=== PATIENT | male | born 1945 | race Caucasian/White ===

== ENCOUNTER → 2017-05-25 | Outpatient (CLI) | payer MEDICARE, BC ==
[2017-05-25 13:24] LABS: BASO % 0.3 % (0.0-1.0); EOS # 0.2 10^3/uL (0.0-0.50); EOS % 1.5 % (0.0-3.0); IMMATURE GRANULOCYTE % 0.7 % (0-0); LYMPH # 1.8 10^3/uL (1.5-4.5); LYMPH % 16.2 % (24.0-44.0); MEAN CORPUSCULAR HEMOGLOBIN 30.2 pg (27.0-33.0); MEAN CORPUSCULAR HGB CONC 33.4 g/dl (32.0-36.5); MEAN CORPUSCULAR VOLUME 90.3 fl (80.0-96.0); MONO # 1.1 10^3/uL (0.0-0.8); MONO % 9.4 % (0.0-5.0); NEUTROPHILS # 8.1 10^3/uL (1.8-7.7); NEUTROPHILS % 71.9 % (36.0-66.0); PLATELET COUNT, AUTOMATED 191 10^3/uL (150-450); RED CELL DISTRIBUTION WIDTH 13.6 % (11.5-14.5); WHITE BLOOD COUNT 11.3 10^3/uL (4.0-10.0)
[2017-05-25 14:59] LABS: ALBUMIN 3.7 GM/DL (3.2-5.2); CREATININE FOR GFR 1.4 MG/DL (0.70-1.30); GLOMERULAR FILTRATION RATE 53.3 (>42); MAGNESIUM LEVEL 2.1 MG/DL (1.8-2.4); PHOSPHORUS LEVEL 2.9 MG/DL (2.5-4.9); POTASSIUM SERUM 4.1 MEQ/L (3.5-5.1)
== END ==
LOC: M SMT 11:24
PROVIDERS: ATTEND Internal Medicine Nephrology
DX: N18.3 Chronic kidney disease, stage 3 (moderate) (principal); E11.22 Type 2 diabetes mellitus with diabetic chronic kidney disease

== ENCOUNTER 2020-06-21 18:26 | Emergency (ER) | payer BC, MEDICARE ==
[~2020-06-21] VITALS: Ht 170.2 cm; Wt 91.8 kg
[2020-06-21] MEDS ORDERED: ONDANSETRON 4MG/2ML VIAL IV ONE (19:00)
[2020-06-21] MEDS: MORPHINE 2 MG/ML 1ML VIAL (J2270) IV PRN ×2 (19:04→21:06)
[2020-06-21] MEDS ORDERED: FISH1000 PO (19:49)
[2020-06-21] MEDS ORDERED: TRAD5TAB PO (19:49)
[2020-06-21] MEDS ORDERED: DILT60TA PO (19:49)
[2020-06-21] MEDS ORDERED: D3 +TAB PO (19:49)
[2020-06-21] MEDS ORDERED: TORS10TA3 PO (19:49)
[2020-06-21] MEDS ORDERED: COLE625TAB PO (19:49)
[2020-06-21] MEDS ORDERED: POTA10TA16 PO (19:49)
[2020-06-21] MEDS ORDERED: DILT240C82 PO (19:49)
[2020-06-21] MEDS ORDERED: ATOR80TA59 PO (19:49)
[2020-06-21] MEDS ORDERED: ALLO100T PO (19:49)
--- NOTE | 2020-06-21 20:40 | REPVR ---
PROCEDURE INFORMATION: Exam: XR Right Shoulder Exam date and time: 06/21/2020 7:57 PM Age: 75 years old Clinical indication: Injury or trauma; Fall; Crushing; Shoulder; Right TECHNIQUE: Imaging protocol: XR Right shoulder. Views: 2 or more views. COMPARISON: No relevant prior studies available. FINDINGS: Bones/joints: There is no fracture or dislocation of the right shoulder. The right glenohumeral alignment is anatomic. No arthropathy involving the right glenohumeral joint is noted. Soft tissues: Unremarkable. No calcific densities are seen in the rotator cuff or subacromial subdeltoid bursa to suggest calcific tendinitis or calcific subacromial subdeltoid bursitis. IMPRESSION: No fracture or dislocation of the right shoulder. Electronically signed by: Edmar De Oliveira On 06/21/2020 20:40:14 PM
--- NOTE | 2020-06-21 22:00 | REPVR ---
PROCEDURE INFORMATION: Exam: CT Right Upper Extremity Without Contrast, Shoulder Exam date and time: 06/21/2020 9:33 PM Age: 75 years old Clinical indication: Injury or trauma; Fall; Blunt trauma (contusions or hematomas); Shoulder; Right; Additional info: Trauma, limited range of motion TECHNIQUE: Imaging protocol: CT of the Right upper extremity without contrast was performed. Exam focused on the shoulder. Radiation optimization: All CT scans at this facility use at least one of these dose optimization techniques: automated exposure control; mA and/or kV adjustment per patient size (includes targeted exams where dose is matched to clinical indication); or iterative reconstruction. COMPARISON: CR Shoulder, complete RIGHT 06/21/2020 7:17 PM FINDINGS: Bones/joints: There is no fracture or dislocation of the right shoulder. The right glenohumeral alignment is anatomic in the right humeral head is not high riding. No arthropathy involving the right glenohumeral joint is noted. No widening of the right acromioclavicular joint space or right coracoclavicular space is noted to suggest a right acromioclavicular separation injury. The acromion has a concave shape (type II acromion). The acromial orientation is horizontal with respect to the distal end of the clavicle. Incidental note is made of a small well corticated ossicle in the superior aspect of the right acromioclavicular joint capsule. There are old healed fracture deformities involving the right anterior 3rd and 4th ribs. Soft tissues: There is a full-thickness tear involving the right supraspinatus and infraspinatus tendons, and the tear measures approximately 3.4 cm in medial to lateral dimension and 4.5 cm in anterior to posterior dimension (image 22 of the coronal series 204 and image 22 of the sagittal series 205), with medial retraction of the tendons to approximately the level of the mid humeral head. No atrophy of the right rotator cuff muscles is noted. There is a small amount of fluid in the right subacromial subdeltoid bursa that contains a small calcific density, which are findings that can be seen with calcific right subacromial subdeltoid bursitis. IMPRESSION: 1. No fracture or dislocation of the right shoulder. 2. Full-thickness tear involving the right supraspinatus and infraspinatus tendons, and the tear measures approximately 3.4 cm in medial to lateral dimension and 4.5 cm in anterior to posterior dimension, with medial retraction of the tendons to approximately the level of the mid humeral head. 3. Small amount of fluid in the right subacromial subdeltoid bursa that contains a small calcific density, which are findings that can be seen with calcific right subacromial subdeltoid bursitis. Electronically signed by: Edmar De Oliveira On 06/21/2020 21:59:51 PM
[2020-06-21] MEDS ORDERED: NORCO 5/325MG TABLET (BULK FOR ED) PO ONE (23:00)
[2020-06-21 23:15] VITALS: BP 165/91
== END 2020-06-21 23:45 | disposition home or self-care (01) ==
LOC: M ED 18:26
DX: S46.011A Strain of muscle(s) and tendon(s) of the rotator cuff of right shoulder, initial encounter (principal); W19.XXXA Unspecified fall, initial encounter; Y92.099 Unspecified place in other non-institutional residence as the place of occurrence of the external cause; Y93.89 Activity, other specified; Y99.9 Unspecified external cause status; Z79.899 Other long term (current) drug therapy
CPT/HCPCS: 73030; 73200; 80047; 96374; 96375; 96376; 99284; J2270; J2405

== ENCOUNTER → 2020-10-07 | Outpatient (REF) | payer MEDICARE ==
[~2020-10-07] MED LIST: ALLO100T PO; ATOR80TA59 PO; COLE625TAB PO; D3 +TAB PO; DILT240C82 PO; DILT60TA PO; FISH1000 PO; POTA10TA16 PO; TORS10TA3 PO; TRAD5TAB PO
[2020-10-07 17:41] LABS: BACTERIA, URINE AUTO NEGATIVE (NEGATIVE); RBC, URINE AUTO 0 /HPF (0-3); SQUAMOUS EPITHELIAL CELL UR AU 0 /HPF (0-6); WBC, URINE AUTO 0 /HPF (0-3)
== END ==
LOC: M LAB REF 17:07
PROVIDERS: ATTEND Nurse Practitioner Family
DX: R31.9 Hematuria, unspecified (principal)

== ENCOUNTER → 2021-04-07 | Outpatient (REF) | payer MEDICARE | LOC: M LAB REF 13:05 | PROVIDERS: ATTEND Nurse Practitioner Family | DX: E83.42 Hypomagnesemia (principal) ==

== ENCOUNTER → 2022-10-02 | Outpatient (CLI) | payer MEDICARE ==
[~2022-10-02] MED LIST changes: +COLE625T17 PO; -COLE625TAB PO; +POTA-149 PO; -POTA10TA16 PO
== END ==
LOC: M CARPUL 10:10
PROVIDERS: ATTEND Internal Medicine Cardiovascular Disease
DX: R01.1 Cardiac murmur, unspecified (principal); R06.02 Shortness of breath; G47.33 Obstructive sleep apnea (adult) (pediatric); I10 Essential (primary) hypertension

== ENCOUNTER → 2024-10-27 | Outpatient (CLI) | payer MEDICARE | LOC: M CARPUL 09:00 | PROVIDERS: ATTEND Internal Medicine Cardiovascular Disease | DX: I35.1 Nonrheumatic aortic (valve) insufficiency (principal); I77.810 Thoracic aortic ectasia ==

== ENCOUNTER 2025-03-19 18:21 | Inpatient (IN) | payer MEDICARE ==
[~2025-03-19] VITALS: Ht 170.2 cm; Wt 81.1 kg
[~2025-03-19 18:21] MED LIST changes: +ALDA50TA2 PO; +ASPI81CH33 PO; +CALC1CAP31 PO; +CARV12.5 PO; +D31000CA6 PO; +NITR0.4S14 PO; +SODI325T9 PO; +TAMS-18 PO; +TORS20TA2 PO; +VENL50TA2 PO
[2025-03-19] MEDS ORDERED: CARB25TA18 PO (18:42)
[2025-03-19 20:06] LABS: BASO # 0.0 10^3/uL (0.0-0.2); BASO % 0.0 % (0.0-1.0); EOS # 0.0 10^3/uL (0.0-0.5); EOS % 0.3 % (0.0-3.0); LYMPH # 0.8 10^3/uL (1.5-5.0); LYMPH % 7.0 % (24.0-44.0); MONO # 1.4 10^3/uL (0.0-0.8); MONO % 12.5 % (2.0-8.0); NEUTROPHILS # 8.6 10^3/uL (1.5-8.5); NEUTROPHILS % 79.8 % (36.0-66.0); PLATELET COUNT, AUTOMATED 119 10^3/uL (150-450)
[2025-03-19] MEDS ORDERED: ASPI81TA26 PO (20:28)
[2025-03-19] MEDS ORDERED: VENL37.52 PO (20:33)
[2025-03-19] MEDS ORDERED: VITA-243 PO (20:37)
[2025-03-19 20:40] LABS: ALT/SGPT < 9 U/L (7.0-40); AST/SGOT 13 U/L (<34); CALCIUM LEVEL 8.5 MG/DL (8.3-10.6); CARBON DIOXIDE LEVEL 20 MMOL/L (20-31); CHLORIDE LEVEL 110 MMOL/L (98-107); CREATININE FOR GFR 5.41 MG/DL (0.70-1.30); GLOMERULAR FILTRATION RATE 10.2 (>42); POTASSIUM SERUM 5.8 MMOL/L (3.5-5.1); SODIUM LEVEL 143 MMOL/L (136-145)
[2025-03-19] MEDS ORDERED: HOME MED LIST COMPLETE! XX SCH (20:40)
[2025-03-19 21:53] LABS: KETONE, URINE AUTO RFX NEGATIVE (NEGATIVE); NITRITE, URINE AUTO RFX NEGATIVE (NEGATIVE); RBC, URINE AUTO RFX 6 /HPF (0-3); SQUAM EPITHELIAL CELL UR AURFX 0 /HPF (0-6)
[2025-03-19 22:06] LABS: LEUKOCYTE ESTERASE UR AUTO RFX 3+ (NEGATIVE); WBC, URINE AUTO RFX TNTC /HPF (0-3)
[2025-03-19] MEDS: PATIROMER SORBITEX CALCIUM 8.4GM POWDER PACKET PO ONE (23:19)
[2025-03-19] MEDS: cefTRIAXone SOD 1 GM in DEXTROSE 5% (D5W) ADV/MINI-BAG 50 ML IV ONE (23:19)
[2025-03-20] MEDS ORDERED: NS (Normal Saline) 0.9% 1,000 ML IV ONE (00:45)
[2025-03-20] MEDS: NS 500 ML IV ONE (01:15)
[2025-03-20] MEDS: SODIUM BICARBONATE 150 MEQ in STERILE WATER LITER BAG 1,000 ML IV SCH (02:34)
[2025-03-20 06:39] LABS: BASO # 0.0 10^3/uL (0.0-0.2); BASO % 0.1 % (0.0-1.0); EOS # 0.0 10^3/uL (0.0-0.5); EOS % 0.2 % (0.0-3.0); LYMPH # 0.6 10^3/uL (1.5-5.0); LYMPH % 6.7 % (24.0-44.0); MONO # 0.9 10^3/uL (0.0-0.8); MONO % 9.8 % (2.0-8.0); NEUTROPHILS # 7.3 10^3/uL (1.5-8.5); NEUTROPHILS % 82.7 % (36.0-66.0); PLATELET COUNT, AUTOMATED 112 10^3/uL (150-450)
[2025-03-20 07:07] LABS: CALCIUM LEVEL 7.8 MG/DL (8.3-10.6); CARBON DIOXIDE LEVEL 19.0 MMOL/L (20-31); CHLORIDE LEVEL 110.0 MMOL/L (98-107); CREATININE FOR GFR 5.49 MG/DL (0.70-1.30); GLOMERULAR FILTRATION RATE 10.0 (>42); POTASSIUM SERUM 5.4 MMOL/L (3.5-5.1); SODIUM LEVEL 142.0 MMOL/L (136-145)
[2025-03-20] MEDS: DOCUSATE SODIUM 100 MG CAPSULE PO SCH (12:01)
[2025-03-20] MEDS: ATORVASTATIN 20 MG TAB PO SCH (12:02)
[2025-03-20] MEDS: VENLAFAXINE **XR** 37.5 MG CAPSULE PO SCH (12:02)
[2025-03-20] MEDS: TAMSULOSIN 0.4 MG CAP PO SCH (12:02)
[2025-03-20] MEDS: PATIROMER SORBITEX CALCIUM 8.4GM POWDER PACKET PO ONE (12:03)
[2025-03-20] MEDS: SINEMET 25-100 MG TAB PO SCH (12:03)
[2025-03-20 14:58] VITALS: BP 121/65; TEMP 97.8; O2SAT 96
[2025-03-20 19:37] VITALS: BP 108/57; TEMP 98; O2SAT 95
[2025-03-20] MEDS: cefTRIAXone SOD 1 GM in DEXTROSE 5% (D5W) ADV/MINI-BAG 50 ML IV SCH (20:09)
[2025-03-20 23:54] VITALS: BP 95/50; TEMP 97.8; O2SAT 95
[2025-03-21 03:36] VITALS: BP 117/61; TEMP 98.3; O2SAT 96
[2025-03-21 04:45] LABS: BASO # 0.0 10^3/uL (0.0-0.2); BASO % 0.4 % (0.0-1.0); EOS # 0.1 10^3/uL (0.0-0.5); EOS % 1.8 % (0.0-3.0); LYMPH # 1.0 10^3/uL (1.5-5.0); LYMPH % 17.7 % (24.0-44.0); MONO # 0.8 10^3/uL (0.0-0.8); MONO % 14.6 % (2.0-8.0); NEUTROPHILS # 3.6 10^3/uL (1.5-8.5); NEUTROPHILS % 65.0 % (36.0-66.0); PLATELET COUNT, AUTOMATED 120 10^3/uL (150-450)
[2025-03-21 05:21] LABS: CALCIUM LEVEL 7.6 MG/DL (8.3-10.6); CARBON DIOXIDE LEVEL 25.0 MMOL/L (20-31); CHLORIDE LEVEL 104.0 MMOL/L (98-107); CREATININE FOR GFR 5.74 MG/DL (0.70-1.30); GLOMERULAR FILTRATION RATE 9.5 (>42); POTASSIUM SERUM 4.1 MMOL/L (3.5-5.1); SODIUM LEVEL 142.0 MMOL/L (136-145)
[2025-03-21 07:51] VITALS: BP 158/77; TEMP 97.6; O2SAT 96
[2025-03-21 08:42] VITALS: BP 158/77
[2025-03-21] MEDS: SODIUM BICARBONATE 325 MG TAB PO SCH (08:42)
[2025-03-21 12:00] VITALS: BP 98/58; TEMP 98.2; O2SAT 91
[2025-03-21] MEDS: NS 500 ML IV ONE (13:14)
[2025-03-21 15:25] VITALS: BP 122/64; TEMP 97.6; O2SAT 98
[2025-03-21] MEDS: NS (Normal Saline) 0.9% 1,000 ML IV SCH (15:28)
== END 2025-03-21 17:31 | disposition short-term general hospital (02) | DRG 690 ==
LOC: M ED 18:21 → M ED INP 03-20 00:31 → M PCU 03-20 14:53
PROVIDERS: ADMIT Internal Medicine Nephrology; ATTEND Internal Medicine Nephrology
DX: N39.0 Urinary tract infection, site not specified (principal); N18.4 Chronic kidney disease, stage 4 (severe); N25.81 Secondary hyperparathyroidism of renal origin; N17.9 Acute kidney failure, unspecified; E87.20 Acidosis, unspecified; F03.A0 Unspecified dementia, mild, without behavioral disturbance, psychotic disturbance, mood disturbance, and anxiety; G20.A1 Parkinson's disease without dyskinesia, without mention of fluctuations; I12.9 Hypertensive chronic kidney disease with stage 1 through stage 4 chronic kidney disease, or unspecified chronic kidney disease; E78.5 Hyperlipidemia, unspecified; E11.22 Type 2 diabetes mellitus with diabetic chronic kidney disease; D63.1 Anemia in chronic kidney disease; H91.93 Unspecified hearing loss, bilateral; E55.9 Vitamin D deficiency, unspecified; N40.0 Benign prostatic hyperplasia without lower urinary tract symptoms; K80.20 Calculus of gallbladder without cholecystitis without obstruction; E87.5 Hyperkalemia; Z90.5 Acquired absence of kidney; Z85.528 Personal history of other malignant neoplasm of kidney; Z96.0 Presence of urogenital implants; Z79.82 Long term (current) use of aspirin; Z79.899 Other long term (current) drug therapy

== ENCOUNTER → 2025-04-29 | Outpatient (REF) | payer MEDICARE ==
[~2025-04-29] MED LIST changes: +ASPI81TA26 PO; +CARB25TA18 PO; +VENL37.52 PO; +VITA-243 PO
[2025-04-30 18:30] LABS: IRON (FE) 35.0 UG/DL (65-175); PERCENT SATURATION 15.9 % (19.7-50.0)
== END ==
LOC: M LAB REF 17:21
PROVIDERS: ATTEND Nurse Practitioner Family
DX: D50.9 Iron deficiency anemia, unspecified (principal)